=== PATIENT | male | born 1945 | race Caucasian/White ===

== ENCOUNTER → 2021-07-10 | Outpatient (CLI) | payer OTHER, MEDICARE ==
[~2021-07-10] MED LIST: ACET-2267 PO; IBUP1TAB14 PO; MECO10005 PO; ZINC50TA51 PO
== END ==
LOC: ORTHO 10:04
PROVIDERS: ATTEND Orthopaedic Surgery
DX: S83.241A Other tear of medial meniscus, current injury, right knee, initial encounter (principal); M17.11 Unilateral primary osteoarthritis, right knee; E78.5 Hyperlipidemia, unspecified; I10 Essential (primary) hypertension; X58.XXXA Exposure to other specified factors, initial encounter
CPT/HCPCS: 99203

== ENCOUNTER 2021-07-11 05:42 | Outpatient (CLI) | payer OTHER, MEDICARE ==
[~2021-07-11] VITALS: Ht 193 cm; Wt 113.6 kg
[2021-07-11] MEDS ORDERED: ACET-2267 PO (09:17)
[2021-07-11] MEDS ORDERED: ZINC50TA51 PO (09:17)
[2021-07-11] MEDS ORDERED: MECO10005 PO (09:17)
[2021-07-11] MEDS ORDERED: IBUP1TAB14 PO (09:17)
== END 2021-07-11 09:30 | disposition home or self-care (01) ==
LOC: PREOP 05:42
PROVIDERS: ATTEND Orthopaedic Surgery
DX: Z01.818 Encounter for other preprocedural examination (principal)

== ENCOUNTER 2021-07-16 05:51 | Day surgery (SDC) | payer MEDICARE, OTHER ==
[2021-07-16] VITALS (10 sets, daily range): BP systolic 123–159; BP diastolic 72–79
[~2021-07-16] VITALS: Ht 193 cm; Wt 113.6 kg
[2021-07-16] MEDS ORDERED: ceFAZolin 2 GM IV Premixed 50 ML IV ONE (06:15)
[2021-07-16] MEDS ORDERED: LACTATED RINGERS 1,000 ML IV PRN (06:15)
[2021-07-16] MEDS ORDERED: LIDOCAINE/EPI 2% 1:100,00 (XYLOCAINE) 20 ML VIAL ONE (07:02)
[2021-07-16] MEDS ORDERED: fentaNYL INJ 100 MCG/2 ML AMP ONE (07:08)
[2021-07-16] MEDS ORDERED: ONDANSETRON 4 MG/2 ML (SDV) Z0FRAN ONE (07:09)
[2021-07-16] MEDS ORDERED: proPOfol 200 MG/20 ML (DIPRIVAN) VIAL IV ONE (07:09)
[2021-07-16] MEDS ORDERED: LIDOCAINE PF 2% 5 ML (XYLOCAINE) VIAL ONE (07:09)
--- NOTE | 2021-07-16 07:18 | Progress Note-Pre Operative ---
Pre-Operative Progress Note H&P Reviewed The H&P was reviewed, patient examined and no changes noted. Date Seen by Provider: Jul 16, 2021 Time Seen by Provider: 07:10 Date H&P Reviewed: Jul 16, 2021 Time H&P Reviewed: 07:10 Pre-Operative Diagnosis: Right Knee Medial Meniscus Tear HUMPHREY MATSON MD Jul 16, 2021 07:18
[2021-07-16] MEDS ORDERED: SEVOFLURANE (ULTANE) 15 ML INHAL SOLN ONE (07:59)
--- NOTE | 2021-07-16 08:08 | Operative Report - Ortho ---
Operative Report Surgeon (s)/Product Support Consultant (s) Surgeon HUMPHREY MATSON MD Product Support Consultant n/a Pre-Operative Diagnosis Right Knee Medial Meniscus Tear Post-Operative Diagnosis same Operative Report Date of Procedure: Jul 16, 2021 Name of Procedure Performed: Right Knee Arthroscopy with Partial Medial Meniscectomy Description & Findings After obtaining informed consent and marking the patient in the preoperative holding area, the patient was administered IV antibiotics and taken to the operating room. General anesthesia was induced. The left lower extremity was placed in the well leg jain and the right leg was placed in the arthroscopic jain. Surgical timeout was taken. The right lower extremity was prepped and draped in the usual sterile fashion. An anterolateral portal was established and a diagnostic knee arthroscopy was performed with the following findings: the patellofemoral portion of the joint demonstrated grade II change, the patella tracked well through the trochlear groove, the gutters were free of loose bodies, there was a medial meniscus tear in the posterior horn that extended to the body and it was a horizontal cleavage pattern with radial tear components, grade II change in the medial compartment, ACL was intact, lateral compartment with intact meniscus and early degenerative change in the articular cartilage. An anteromedial portal was established. Probe was inserted and the meniscal tear was explored. Shaver was inserted and the meniscal tear was debrided. Biter was inserted and further debridement of the meniscal tear was performed. Shaver was inserted and the area of meniscectomy was debrided back to a stable border. Probe was reinserted and confirmed that the mensicectomy was stable. Instruments were withdrawn. Wounds were closed with 3-0 nylon, injected with local anesthetic, and dressed with xeroform, 4x4s, ABD, cast padding, and KRISTINA wrap. Patient tolerated the procedure well and was stable to the recovery room. Anesthesia Type General Estimated Blood Loss minimal Specimen(s) collected/removed None HUMPHERY MASTON MD Jul 16, 2021 08:08
[2021-07-16] MEDS ORDERED: OXC5T PO (08:10)
--- NOTE | 2021-07-16 09:14 | Anesthesia-General Post-Op ---
General Patient Condition Mental Status/LOC: Same as Preop Cardiovascular: Satisfactory Nausea/Vomiting: Absent Respiratory: Satisfactory Pain: Controlled Complications: Absent Post Op Complications Complications None Follow Up Care/Instructions Patient Instructions None needed. Anesthesia/Patient Condition Patient Condition Patient is doing well, no complaints, stable vital signs, no apparent adverse anesthesia problems. No complications reported per nursing. GISSEL MCCURDY CRNA Jul 16, 2021 09:14
== END 2021-07-16 10:00 | disposition home or self-care (01) ==
LOC: SDC 05:51
PROVIDERS: ATTEND Orthopaedic Surgery
DX: S83.231A Complex tear of medial meniscus, current injury, right knee, initial encounter (principal); M17.11 Unilateral primary osteoarthritis, right knee; Z87.891 Personal history of nicotine dependence
CPT/HCPCS: 87081

== ENCOUNTER → 2021-07-26 | Outpatient (CLI) | payer OTHER ==
[~2021-07-26] MED LIST changes: +OXC5T PO
== END ==
LOC: ORTHO 09:24
PROVIDERS: ATTEND Orthopaedic Surgery
DX: Z47.89 Encounter for other orthopedic aftercare (principal)

== ENCOUNTER → 2021-08-23 | Outpatient (CLI) | payer MEDICARE, OTHER | LOC: ORTHO 09:00 | PROVIDERS: ATTEND Orthopaedic Surgery | DX: Z47.89 Encounter for other orthopedic aftercare (principal) ==

== ENCOUNTER → 2021-11-01 | Outpatient (CLI) | payer OTHER | LOC: ORTHO 15:43 | PROVIDERS: ATTEND Orthopaedic Surgery | DX: M17.11 Unilateral primary osteoarthritis, right knee (principal) ==

== ENCOUNTER → 2022-01-03 | Outpatient (CLI) | payer OTHER | LOC: ORTHO 08:49 | PROVIDERS: ATTEND Orthopaedic Surgery | DX: M17.11 Unilateral primary osteoarthritis, right knee (principal) | CPT/HCPCS: 99213 ==